=== PATIENT | female | born 1960 | race Caucasian/White ===

== ENCOUNTER 2023-10-27 11:34 | Outpatient (OUT) | payer BC, SELFPAY ==
--- NOTE | 2023-10-27 11:36 | MM_ITS ---
Patient Name: JULIO ZHU MR#: [id number] : 1960 Exam Date: 10/27/2023 Ordering Doctor: DR ALEX VELAZQUEZ RADIOLOGY REPORT PROCEDURE: MM TOMOSYNTHESIS SCREENING BI COMPARISON: MG MAMM SCREEN 3D OPAL CAD, 10/02/2022. MG MAMM SCREEN OPAL W CAD, 08/12/2021. MG MAMM SCREEN OPAL W CAD, 08/01/2019. MG MAMM OPAL SCRN W CAD DIG, 12/18/2013. INDICATIONS: Screening Calculator Name NCI Breast Cancer Risk Assessment Tool 5 Year Breast Cancer Risk 1.10% Lifetime Breast Cancer Risk 4.90% Personal Breast Cancer No Personal Ovarian Cancer No Treatments None Family Cancers Mother with cervical cancer at age 70; Sister with lung cancer at age 64. LOCATION: [facility] BREAST COMPOSITION: Heterogeneously dense,which may obscure small masses. FINDINGS: DIAGNOSTIC CATEGORY 1--NEGATIVE. RIGHT BREAST: No significant suspicious finding. No significant change has occurred. LEFT BREAST: No significant suspicious finding. No significant change has occurred. RECOMMENDATIONS: ROUTINE MAMMOGRAM AND CLINICAL EVALUATION IN 12 MONTHS. PLEASE NOTE: A NORMAL MAMMOGRAM DOES NOT EXCLUDE THE POSSIBILITY OF BREAST CANCER. A CLINICALLY SUSPICIOUS PALPABLE LUMP SHOULD BE BIOPSIED. Dictated by: Husam Banks M.D. on 10/27/2023 at 15:10 Approved by: Husam Banks M.D. on 10/27/2023 at 15:12
== END 2023-10-27 11:35 | disposition home or self-care (01) ==
LOC: MAMMO 11:34
PROVIDERS: PCP Family Medicine; Visit Provider Family Medicine
DX: Z12.31 Encounter for screening mammogram for malignant neoplasm of breast (principal); Z80.8 Family history of malignant neoplasm of other organs or systems; Z80.1 Family history of malignant neoplasm of trachea, bronchus and lung
CPT/HCPCS: 77063; 77067

== ENCOUNTER 2024-10-19 19:46 | Outpatient (REF) | payer BC, SELFPAY ==
--- OUTSIDE RECORDS SUMMARY | 2024-10-19 19:51 | XMS_ITS | CCD ---
Author Organization [facility] Care Team Providers Care 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 Name Role Phone MASSIEL JASMINE Referring Unavailable MASSIEL JASMINE Primary Care Unavailable MD Vic Rodríguez Primary Care Provider [phone] Community, Outreach Attending Provider Community, Outreach Admitting Unavailable Community, Outreach Attending Unavailable Vic Rodríguez Primary Care Unavailable Community, Outreach Admitting Unavailable Community, Outreach Attending Unavailable Vic Rodríguez Primary Care Unavailable RAMANA, DR FERNANDEZ Admitting Unavailable RAMANA, DR FERNANDEZ Attending Unavailable LACHELLE, DR OGDEN Primary Care Unavailable RAMANA, DR FERNANDEZ Consulting Unavailable MASSIEL JASMINE Primary Care Physician Natalee CAMARGO Referring Unavailable Natalee CAMARGO Attending Unavailable Natalee CAMARGO Admitting Unavailable Massiel Jasmine MD Primary Care Provider ELIE RICHARD Attending ELIE Gould Attending MASSIEL Pan Referring Unavailable ELIE RICHARD Attending Jean Carlos talbert Allergies Allergy Classification Reported Allergen(s) Allergy Type Date of Onset Reaction(s) Facility (1 source) No Known Medication Allergies; Translations: [No Known Medication Allergies] Propensity to adverse reactions (disorder) [facility] Repository Medications Current Medications Medication Drug Class(es) Dates Sig (Normalized) Sig (Original) methIMAzole 10 mg oral tablet (5 sources) Thyroid Hormone Synthesis Inhibitor Start: 06-20-2021 take 1 tablet by mouth once daily methimazole 10 mg Tab 10 mg = 1 tab(s), Oral, Daily, Refills(s) 0, Thyroid Start Date: 06/20/21 Status: Ordered methIMAzole (Tap azole) 5 MG tablet 1 (one) time each day at the same time. Active Multiple Vitamins-Minerals (CENTRUM SILVER 50+MEN PO) (4 sources) Multiple Vitamin s-Minerals (CENTRUM SILVER 50+MEN PO) Orally Active 24 hr nicotine 0.583 mg/hr transdermal system (1 source) Cholinergic Nicotinic Agonist Start: nicotine 14 mg/24 hr Transderm ER Film 1 patch(es), TransDermal, Daily, Refill(s) 0, Smoking cessation Start Date: 06/20/21 Status: Ordered Problems Active Problems Problem Classification Problem Date Documented Da te Episodic/Chronic Acquired foot deformities (2 sources) Hammer toe; Translations: [Other hammer toe(s) (acquired), right foot] 09-17-2024 Chronic Acquired foot deformities (2 sources) Tailor's bunion of left foot; Translations: [Bunionette of left foot] 09-17-2024 Episodic Cardiac dysrhythmias (1 source) Bradycardia 06-20-2021 Episodic Gastrointestinal hemorrhage (1 source) Rectal hemorrhage 06-20-2021 Episodic Immunizations and screening for infectious disease (1 source) Encounter for screening for human papillomavirus (HPV); Translations: [ENC SCREENING HUMAN PAPILLOMAVIRUS] Onset: 06-18-2022 Episodic Nonmalignant breast conditions (1 source) Fibrocystic disease of breast 06-20-2021 Chronic Other acquired deformities (2 sources) Equinus contracture of the ankle; Translations: [Contracture, unspecified ankle] 09-17-2024 Chronic Other and unspecified benign neoplasm (1 source) History of polyp of colon 06-20-2021 Episodic Other connective tissue disease (2 sources) Pain in left foot; Translations: [Pain in left foot] 09-17-2024 Episodic Other connective tissue disease (2 sources) Pain in right foot; Translations: [Pain in right foot] 09-17-2024 Episodic Other ear and sense organ disorders (1 source) Hearing loss 06-20-2021 Chronic Other gastrointestinal disorders (1 source) Alteration in bowel elimination 06-27-2021 Episodic Other screening for suspected conditions (not mental disorders or infectious disease) (4 sources) Encounter for screening for malignant neoplasm of cervix; Translations: [ENC SCREENING MALIG NEOPLASM CERV] Onset: 06-17-2022 Episodic Other skin disorders (2 sources) Callosity; Translations: [Corns and callosities] 09-17-2024 Episodic Residual codes; unclassified (1 source) Family history of cancer of colon 06-27-2021 Episodic Thyroid disorders (9 sources) Graves' disease; Translations: [Thyrotoxicosis with diffuse goiter without thyrotoxic crisis or storm] Onset: 04-18-2018 06-20-2021 Chronic Unclassified (1 source) Body mass index 20-24 - normal 06-27-2021 Past or Other Problems Problem Classification Problem Date Documented Date Episodic/Chronic Other diseases of veins and lymphatics (5 sources) Peripheral venous insufficiency; Translations: [Venous insufficiency (chronic) (peripheral)] Onset: 07-02-2023 06-20-2021 Episodic Results Test Name Value Interpretation Reference Range Facility CT Abdomen/Pelvis w/ Contras ton 07-28-2023 CT Abdomen/Pelvis w/ Contrast Exam Date/Time: 07/27/2023 08:12 EST Reason for Exam: [id number] Report IMPRESSION: NO ACUTE ABDOMINOPELVIC PROCESS. EXAM: CT Abdomen/Pelvis w/ Contrast History: Follow-up right ovarian cyst. Left groin pain. Technique: Multiple contiguous axial images were obtained of the abdomen and pelvis from the level of the lung bases through the ischial tuberosities with IV and oral contrast. Multiplanar reformats were obtained. Delayed images were obtained. Comparison: None available Findings: Lung bases are clear. The liver, gallbladder, spleen, stomach, pancreas, and adrenal glands are within normal limits. Kidneys enhance uniformly. No excretion of contrast from the kidneys and normal course and contour of the ureters.. No urinary tract calculi or hydronephrosis. The urinary bladder is significantly distended. No cystic or solid adnexal lesion. Uterus is absent. Abdominal aorta is nonaneurysmal. No retroperitoneal or abdominal/pelvic lymphadenopathy. No small bowel obstruction. Postsurgical changes of the sigmoid colon. No overt colonic mass or pericolonic inflammation. No findings of acute appendicitis. No free fluid or free air. No acute osseous abnormality. Degenerative changes of the spine. All CT scans at this facility use dose modulation, iterative reconstruction, and/or weight based dosing when appropriate to reduce radiation dose to as low as reasonably achievable. Report Ordering Provider: , FINAL REPORT Dictated: 07/28/2023 1:24 pm Graham Ferguson DO Signed (Electronic Signature): 07/28/2023 1:24 pm Signed by: Graham Ferguson DO Transcribed by: MASSIEL Technologist: [email or web address] Technical Comments GFR (mL/min/1/73m2) >60 Contrast: Isovue 300 Contrast amount in ml's: 100 Rectal Contrast Given? No Oral contrast amount in ml's: 900 Normal [facility] Consent for Treatmenton 07-14 Consent for Treatment [id number]#1.0 0TIFF Normal [facility] CreatinineOrdered By: Intrakr SYSTEM on 07-27-2023 Creatinine [Mass/Vol] 0.7 mg/dL Normal 0.5-1.3 FTM C Remisol Comment on above: Performed By: #### 2 [id number], [id number] #### [facility] [address] [place] [address] eGFROrdered By: SYSTEM SYSTE M on 07-27-2023 GFR/1.73 sq M.predicted among non-blacks MDRD (S/P/Bld) [Vol rate/Area] 97 mL/min/1.73 m2 Normal >=59 FT Chem S Comment on above: Interpretive Data: C hronic kidney disease could be indicated at eGFR's of less than 60 mL/min/1.73m2. Kidney failure is indicated at less than 15 mL/min/1.73m2. Order Comment: Order added by Discern Expert. Result Comment: Manufacturing Controls Engineer eric kidney disease could be indicated at eGFR's of less than 60 mL/min/1.73m2. Kidney failure is indicated at less than 15 mL/min/1.73m2. Performed By: #### 2 [id number], [id number] #### [facility] [address] [place] [address] Physician Orderon 07-26-2023 Physician Order [id number]#1. 00TIFF Normal [facility] Physician Order [id number]#1.00 TIFF Normal [facility] Physician Orderon 07-14-2023 Physician Order [id number]#1.0 0TIFF Lis Chandler [facility] PAP ACOG PANEL 2: 30 to 65on 06-24-2022 . . Normal [facility] Comment on above: Result Comment: Perf ormed at: BA Performed By: #### 4 [id number] #### [facility] [address] [place] [address] Dr. Elana Mata Age Gdln ACOG Testing 30-65 Normal [facility] Comment on above: Performed By: #### 4 [id number] #### [facility] [address] [place] [address] Dr. Elana Mata DIAGNOSIS: Comment Normal [facility] Comment on above: Result Comment: NEGA TIVE FOR INTRAEPITHELIAL LESION OR MALIGNANCY. CELLULAR CHANGES ASSOCIATED WITH ATROPHY ARE PRESENT. Performed at: BA Performed By: #### 4 [id number] #### [facility] [address] [place] [address] Dr. Elana Mata HPV Aptima Negative Normal Negative [facility] Comment on above: Result Comment: This nucleic acid amplification test detects fourteen high-risk HPV types (16,18,31,33,35,39,45,51,52,56,58,59,66,68) without differentiation. Performed at: =G Performed By: #### 4 [id number] #### [facility] [address] [place] [address] Dr. Elana Mata Methodology: Comment Normal [facility] Comment on above: Result Comment: This liquid based ThinPrep(R) pap test was screened with the use of an image guided system. Performed at: WB Performed By: #### 4 [id number] #### [facility] [address] [place] [address] Dr. Elana Mata Note: Comment Normal [facility] Comment on above: Result Comment: The Pap smear is a screening test designed to aid in the detection of premalignant and malignant conditions of the uterine cervix. It is not a diagnostic procedure and should not be used as the sole means of detecting cervical cancer. Both false-positive and false-negative reports do occur. . Performed at: WB Performed By: #### 4 [id number] #### [facility] [address] [address] [address] Elana Mata Performed by: Comment Normal [facility] Comment on above: Result Comment: Erik Evangelista, [employer] Performed at: BA Performed By: #### 4 [id number] #### [facility] [address] [address] [address] Elana Mata Specimen adequacy: Comment Normal [facility] Comment on above: Result Comment: Sati sfactory for evaluation. Endocervical component may not be distinguished in cases of atrophy. Performed at: BA Performed By: #### 4 [id number] #### [facility] [address] [address] [address] Elana Mata Blood hemoglobin measurement (mass/volume)Ordered By: [facility] on 06-20-2022 Hemoglobin (Bld) [Mass/Vol] 13.8 g/dL 11.8-15.4 [facility] Body fluid albumin measureme nt (mass/volume)Ordered By: [facility] on 06-20-2022 Albumin (Body fld) [Mass/Vol] 3.9 g/dL 3.2-5.5 [facility] CBC Without Differentialon 1 Erythrocyte distribution width (RBC) [Ratio] 13.0 % Normal 11.9-15.3 [facility] Comment on above: Performed By: #### O UTREACH LIPID, OUTREACH TSH, OUTREACH VITD, CBCNOOUTREACH, OUTREACH CMP #### [facility] [address] Hematocrit (Bld) [Volume fraction] 40.9 % Normal 34.0-46.4 [facility] Comment on above: Performed By: #### O UTREACH LIPID, OUTREACH TSH, OUTREACH VITD, CBCNOOUTREACH, OUTREACH CMP #### [facility] [address] [place] [address] [place] Hemoglobin (Bld) [Mass/Vol] 13.8 g/dL Normal 11.8-15.4 [facility] Comment on above: Performed By: #### O UTREACH LIPID, OUTREACH TSH, OUTREACH VITD, CBCNOOUTREACH, OUTREACH CMP #### [facility] [address] MCH (RBC) [Entitic mass] 32.7 pg Normal 24.7-34.3 [facility] Comment on above: Performed By: #### O UTREACH LIPID, OUTREACH TSH, OUTREACH VITD, CBCNOOUTREACH, OUTREACH CMP #### [facility] [address] MCV (RBC) [Entitic vol] 97.2 fL Normal 80-100 F [facility] Comment on above: Performed By: #### O UTREACH LIPID, OUTREACH TSH, OUTREACH VITD, CBCNOOUTREACH, OUTREACH CMP #### [address] Mean Corpuscular HGB Conc 33.6 g/dL Normal 32.0-35.0 [facility] Comment on above: Performed By: #### O UTREACH LIPID, OUTREACH TSH, OUTREACH VITD, CBCNOOUTREACH, OUTREACH CMP #### [address] Platelet mean volume (Bld) [Entitic vol] 8.9 fL Normal 6.3-10.7 [facility] Comment on above: Result Comment: PERF ORMED BY: [place] [address] PATHOLOGIST SANDWICH [employer]ARD CARRIER ALLISON MANUEL M.D. Performed By: #### O UTREACH LIPID, OUTREACH TSH, OUTREACH VITD, CBCNOOUTREACH, OUTREACH CMP #### [place] [address] [place] Platelets (Bld) [#/Vol] 283 10*3/uL Normal 150-450 [facility] Comment on above: Performed By: #### O UTREACH LIPID, OUTREACH TSH, OUTREACH VITD, CBCNOOUTREACH, OUTREACH CMP #### [facility] [address] [place] [address] [place] RBC (Bld) [#/Vol] 4.21 10*6/uL Normal 3.60-5.00 [facility] Comment on above: Performed By: #### O UTREACH LIPID, OUTREACH TSH, OUTREACH VITD, CBCNOOUTREACH, OUTREACH CMP #### [facility] [address] [place] [address] WBC (Bld) [#/Vol] 6.1 10*3/uL Normal 3.8-11.6 [facility] Comment on above: Performed By: #### O UTREACH LIPID, OUTREACH TSH, OUTREACH VITD, CBCNOOUTREACH, OUTREACH CMP #### [facility] [address] [place] [address] CMP Outreachon 06-20-2022 Albumin [Mass/Vol] 3.9 g/dL Normal 3.2-5.5 [facility] Comment on above: Performed By: #### O UTREACH LIPID, OUTREACH TSH, OUTREACH VITD, CBCNOOUTREACH, OUTREACH CMP #### [facility] [address] [place] [address] ALP [Catalytic activity/Vol] 94 U/L High 32-92 [facility] Comment on above: Performed By: #### O UTREACH LIPID, OUTREACH TSH, OUTREACH VITD, CBCNOOUTREACH, OUTREACH CMP #### [facility] [address] [place] [address] ALT [Catalytic activity/Vol] 27 U/L Normal 10-60 [facility] Comment on above: Performed By: #### O UTREACH LIPID, OUTREACH TSH, OUTREACH VITD, CBCNOOUTREACH, OUTREACH CMP #### [facility] [address] [place] [address] Anion gap [Moles/Vol] 13.2 mmol/L Normal 6.0-15.0 [facility] Comment on above: Performed By: #### O UTREACH LIPID, OUTREACH TSH, OUTREACH VITD, CBCNOOUTREACH, OUTREACH CMP #### [facility] [address] [place] [address] AST [Catalytic activity/Vol] 33 U/L Normal 10-42 [facility] Comment on above: Performed By: #### O UTREACH LIPID, OUTREACH TSH, OUTREACH VITD, CBCNOOUTREACH, OUTREACH CMP #### [facility] [address] [place] [address] [place] Bilirubin [Mass/Vol] 0.5 mg/dL Normal 0.3-1.2 [facility] Comment on above: Performed By: #### O UTREACH LIPID, OUTREACH TSH, OUTREACH VITD, CBCNOOUTREACH, OUTREACH CMP #### [facility] [address] [place] [id number] [place] Calcium [Mass/Vol] 9.2 mg/dL Normal 8.2-10.2 [facility] Comment on above: Performed By: #### O UTREACH LIPID, OUTREACH TSH, OUTREACH VITD, CBCNOOUTREACH, OUTREACH CMP #### [facility] [address] [place] [address] [place] Chloride [Moles/Vol] 103 mmol/L Normal 95-114 [facility] Comment on above: Performed By: #### O UTREACH LIPID, OUTREACH TSH, OUTREACH VITD, CBCNOOUTREACH, OUTREACH CMP #### [facility] [address] [place] [address] [place] CO2 [Moles/Vol] 26.1 mmol/L Normal 22.0-30.0 [facility] Comment on above: Performed By: #### O UTREACH LIPID, OUTREACH TSH, OUTREACH VITD, CBCNOOUTREACH, OUTREACH CMP #### [facility] [address] [place] [id number] [place] Creatinine [Mass/Vol] 0.65 mg/dL Normal 0.44-1.03 [facility] Comment on above: Performed By: #### O UTREACH LIPID, OUTREACH TSH, OUTREACH VITD, CBCNOOUTREACH, OUTREACH CMP #### [facility] [address] [place] [id number] [place] Estimated GFR ( Lakshmi > 60 Normal [facility] Comment on above: Result Comment: GFR estimated reference range: According to KDOQI guidelines, <60 ml/min/1.73m2 is sufficient to diagnose a patient with chronic kidney disease. Performed By: #### O UTREACH LIPID, OUTREACH TSH, OUTREACH VITD, CBCNOOUTREACH, OUTREACH CMP #### [facility] [address] [place] [id number] [place] Estimated GFR (Non- Am > 60 Normal [facility] Comment on above: Performed By: #### O UTREACH LIPID, OUTREACH TSH, OUTREACH VITD, CBCNOOUTREACH, OUTREACH CMP #### [facility] [address] [place] [id number] [place] Glucose [Mass/Vol] 99 mg/dL Normal 70-100 [facility] Comment on above: Result Comment: [facility] Glucose Reference Range is dependent on time and content of last meal. Glucose of more than 200 mg/dL in a nonstressed, ambulatory subject supports the diagnosis of Diabetes Mellitus. ADA recommended reference range Performed By: #### O UTREACH LIPID, OUTREACH TSH, OUTREACH VITD, CBCNOOUTREACH, OUTREACH CMP #### [facility] [address] [place] [address] [place] Potassium [Moles/Vol] 4.3 mmol/L Normal 3.5-5.1 [facility] Comment on above: Performed By: #### O UTREACH LIPID, OUTREACH TSH, OUTREACH VITD, CBCNOOUTREACH, OUTREACH CMP #### [facility] [address] [place] [phone] [place] Protein [Mass/Vol] 6.6 g/dL Normal 6.1-7.9 [facility] Comment on above: Performed By: #### O UTREACH LIPID, OUTREACH TSH, OUTREACH VITD, CBCNOOUTREACH, OUTREACH CMP #### [facility] [address] [place] [phone] [place] Sodium [Moles/Vol] 138 mmol/L Normal 136-146 [facility] Comment on above: Performed By: #### O UTREACH LIPID, OUTREACH TSH, OUTREACH VITD, CBCNOOUTREACH, OUTREACH CMP #### [facility] [address] [place] [phone] [place] Urea nitrogen [Mass/Vol] 11 mg/dL Normal 9-23 [facility] Comment on above: Performed By: #### O UTREACH LIPID, OUTREACH TSH, OUTREACH VITD, CBCNOOUTREACH, OUTREACH CMP #### [facility] [address] Cholesterol [Mass/volume] in Serum or PlasmaOrdered By: [facility] on 06-20-2022 Cholesterol [Mass/Vol] 232 mg/dL 140-200 [facility] Comment on above: Chol less than 200 m g/dl low riskChol 201-239 mg/dl borderline riskChol 240 mg/dl and greater high risk Cholesterol in LDL Calc [Mas s/Vol]Ordered By: OUTREACH [facility] on 06-20-2022 Cholesterol in LDL [Mass/Vol] 123 mg/dL 0-100 [facility] Comment on above: LDL ATP III CLASSIFI CATIONLDL less than 100 mg/dL OptimalLDL 100-129 mg/dL Near or above optimalLDL 130-159 mg/dL Borderline highLDL 160-189 mg/dL HighLDL greater than 189 mg/dL Very high Cholesterol in VLDL Calc [Ma ss/Vol]Ordered By: [facility] on 06-20-2022 Cholesterol in VLDL [Mass/Vol] 17 mg/dL [facility] Creatinine and Glomerular fi ltration rate.predicted panel (S/P/Bld)Ordered By: [facility] on 06-20-2022 Creatinine [Mass/Vol] 0.65 mg/dL 0.44-1.03 [facility] Erythrocyte distribution wid th Auto (RBC) [Ratio]Ordered By: [facility] on 06-20-2022 Erythrocyte distribution width (RBC) [Ratio] 13.0 % 11.9-15.3 [facility] Estimated glomerular filtrat ion rate (GFR) non- AmericanOrdered By: [facility] on 06-20-2022 GFR/1.73 sq M.predicted among non-blacks MDRD (S/P/Bld) [Vol rate/Area] > 60 mL/Min [facility] Hematocrit Auto (Bld) [Volum e fraction]Ordered By: [facility] on 06-20-2022 Hematocrit (Bld) [Volume fraction] 40.9 % 34.0-46.4 [facility] Lipid Profile Outreach Cholesterol [Mass/Vol] 232 mg/dL High 140-200 [facility] Comment on above: Result Comment: Chol less than 200 mg/dl low risk Chol 201-239 mg/dl borderline risk Chol 240 mg/dl and greater high risk Performed By: #### O UTREACH LIPID, OUTREACH TSH, OUTREACH VITD, CBCNOOUTREACH, OUTREACH CMP #### [facility] [address] Cholesterol in HDL [Mass/Vol] 92 mg/dL High 35-85 [facility] Comment on above: Result Comment: HDL CHOL ATP-III CLASSIFICATION Cardiovascular Risk HDL > or equal to 60 mg/dL LOW HDL < 40 mg/dL HIGH Performed By: #### O UTREACH LIPID, OUTREACH TSH, OUTREACH VITD, CBCNOOUTREACH, OUTREACH CMP #### [facility] [address] Cholesterol.total/Choles terol in HDL [Mass ratio] 2.5 {ratio} Normal <5.0 [facility] Comment on above: Performed By: #### O UTREACH LIPID, OUTREACH TSH, OUTREACH VITD, CBCNOOUTREACH, OUTREACH CMP #### [facility] [address] LDL Cholesterol,Calculated 123 mg/dL High 0-100 [facility] Comment on above: Result Comment: LDL ATP III CLASSIFICATION LDL less than 100 mg/dL Optimal LDL 100-129 mg/dL Near or above optimal LDL 130-159 mg/dL Borderline high LDL 160-189 mg/dL High LDL greater than 189 mg/dL Very high Performed By: #### O UTREACH LIPID, OUTREACH TSH, OUTREACH VITD, CBCNOOUTREACH, OUTREACH CMP #### [facility] [address] Triglyceride w/Reflex 87 mg/dL Normal 35-149 [facility] Comment on above: Result Comment: TRIG ATP III CLASSIFICATION TRIG less than 150 mg/dL Normal TRIG 150-199 mg/dL Borderline high TRIG 200-500 mg/dL High TRIG greater than 500 mg/dL Very high Standard traceable to the Center for Disease Conrtrol and Prevention (CDC) test method. Performed By: #### O UTREACH LIPID, OUTREACH TSH, OUTREACH VITD, CBCNOOUTREACH, OUTREACH CMP #### [facility] [address] VLDL CHOLESTEROL 17 mg/dL Normal [facility] Comment on above: Performed By: #### O UTREACH LIPID, OUTREACH TSH, OUTREACH VITD, CBCNOOUTREACH, OUTREACH CMP #### [facility] [address] MCH Auto (RBC) [Entitic mass ]Ordered By: OUTREACH COMM[facility]ITY on 06-20-2022 MCH (RBC) [Entitic mass] 32.7 pg 24.7-34.3 [facility] MCHC Auto (RBC) [Mass/Vol]Or dered By: OUTREACH COMMUNITY on 06-20-2022 MCHC (RBC) [Mass/Vol] 33.6 g/dL 32.0-35.0 [facility] MCV Auto (RBC) [Entitic vol] Ordered By: OUTREACH COMMUNITY on 06-20-2022 MCV (RBC) [Entitic vol] 97.2 fL 80-100 F [facility] No Panel InformationOrdered By: OUTREACH COMMUNITY on 06-20-2022 25-Hydroxy Vitamin D Total 29.9 ng/mL 30-100 [facility] Comment on above: VITAMIN D STATUS 25( [place])VITAMIN D RANGE (ng/mL) Deficient <20 Insufficient 20 to <30Sufficient 30 to 100Reference: Lizzie MF,Eliana NC, Tank ORTIZ, et al. Evaluation,treatment, and prevention of vitamin D deficiency; an Endocrine Society clinical practice guideline. JCEM. 2010; 96(7):1911-30. Estimated GFR () > 60 mL/Min [facility] Comment on above: GFR estimated refere nce range: According to KDOQI guidelines, <60 ml/min/1.73m2 is sufficient to diagnose a patient with chronic kidney disease. Pharmacy Creatinine Clearance (Chem N/A [facility] Triglycerides Reflex 87 mg/dL 35-149 [facility] Comment on above: TRIG ATP III CLASSIF ICATIONTRIG less than 150 mg/dL NormalTRIG 150-199 mg/dL Borderline highTRIG 200-500 mg/dL High TRIG greater than 500 mg/dL Very highStandard traceable to the Center for Disease Conrtrol and Prevention (CDC) test method. Outreach VitD 25on 2 Outreach VitD 25 29.9 ng/mL Low 30-100 [facility] Comment on above: Result Comment: MONAE MIN D STATUS 25([place])VITAMIN D RANGE (ng/mL) Deficient <20 Insufficient 20 to <30 Sufficient 30 to 100 Reference: Lizzie MF,Eliana NC, Tank ORTIZ, et al. Evaluation,treatment, and prevention of vitamin D deficiency; an Endocrine Society clinical practice guideline. JCEM. 2010; 96(7):1911-30. PERFORMED BY: [place] [id number] PATHOLOGIST SANDWICH [employer]ARD CARRIER ALLISON MANUEL M.D. Performed By: #### O UTREA GLYCO, OUTREACH VITD, OUTREACH TSH, CBCNOOUTREACH, OUTREACH LIPID, OUTREACH CMP #### [address] Platelet mean volume Auto (B ld) [Entitic vol]Ordered By: OUTREACH [facility] on 06-20-2022 Platelet mean volume (Bld) [Entitic vol] 8.9 fL 6.3-10.7 [facility] Platelets Auto (Bld) [#/Vol] Ordered By: [facility] on 06-20-2022 Platelets (Bld) [#/Vol] 283 10*3/uL 150-450 [facility] Protein [Mass/volume] in Ser um or PlasmaOrdered By: OUTREACH [facility] on 06-20-2022 Protein [Mass/Vol] 6.6 g/dL 6.1-7.9 [facility] RBC Auto (Bld) [#/Vol]Ordere d By: OUTREACH [facility] on 06-20-2022 RBC (Bld) [#/Vol] 4.21 10*6/uL 3.60-5.00 [facility] Serum or plasma alanine burks otransferase measurement without P-5'-P (enzymatic activiOrdered By: [facility]ACH [facility] on 06-20-2022 ALT No additional P-5'-P [Catalytic activity/Vol] 27 U/L 10-60 [facility] Serum or plasma alkaline teddy sphatase measurement (enzymatic activity/volume)Ordered By: [facility]ACH [facility] on 06-20-2022 ALP [Catalytic activity/Vol] 94 U/L 32-92 [facility] Serum or plasma anion gap de terminationOrdered By: OUTREACH [facility] on 06-20-2022 Anion gap [Moles/Vol] 13.2 mmol/L 6.0-15.0 [facility] Serum or plasma aspartate am inotransferase measurement (enzymatic activity/volume)Ordered By: OUTREACH [facility] on 06-20-2022 AST [Catalytic activity/Vol] 33 U/L 10-42 [facility] Serum or plasma calcium samir urement (mass/volume)Ordered By: OUTREACH [facility] on 06-20-2022 Calcium [Mass/Vol] 9.2 mg/dL 8.2-10.2 [facility] Serum or plasma chloride vera surement (moles/volume)Ordered By: OUTREACH [facility] on 06-20-2022 Chloride [Moles/Vol] 103 mmol/L 95-114 [facility] Serum or plasma glucose samir urement (mass/volume)Ordered By: [facility] on 06-20-2022 Glucose [Mass/Vol] 99 mg/dL 70-100 [facility] Comment on above: ADA recommended refe rence rangeRandom Glucose Reference Range is dependent on time and content of last meal. Glucose of more than 200 mg/dL in a nonstressed, ambulatory subject supports the diagnosis of Diabetes Mellitus. Serum or plasma high density lipoprotein (HDL) cholesterol measurementOrdered By: OUTREACH [facility] on 06-20-2022 Cholesterol in HDL [Mass/Vol] 92 mg/dL 35-85 [facility] Comment on above: HDL CHOL ATP-III CLA SSIFICATION Cardiovascular RiskHDL > or equal to 60 mg/dL LOWHDL < 40 mg/dL HIGH Serum or plasma potassium me asurement (moles/volume)Ordered By: OUTREACH [facility] on 06-20-2022 Potassium [Moles/Vol] 4.3 mmol/L 3.5-5.1 [facility] Serum or plasma sodium measu rement (moles/volume)Ordered By: [facility] on 06-20-2022 Sodium [Moles/Vol] 138 mmol/L 136-146 [facility] Serum or plasma total biliru bin measurement (mass/volume)Ordered By: [facility] on 06-20-2022 Bilirubin [Mass/Vol] 0.5 mg/dL 0.3-1.2 [facility] Serum or plasma total carbon dioxide measurement (moles/volume)Ordered By: [facility] on 06-20-2022 CO2 [Moles/Vol] 26.1 mmol/L 22.0-30.0 [facility] Serum or plasma total choles terol/high density lipoprotein (HDL) cholesterol mass ratOrdered By: [facility] on 06-20-2022 Cholesterol.total/Choles terol in HDL [Mass ratio] 2.5 {ratio} <5.0 [facility] Serum or plasma urea nitroge n measurement (mass/volume)Ordered By: [facility] on 06-20-2022 Urea nitrogen [Mass/Vol] 11 mg/dL 06-05 [facility] TSH DL <= 0.005 mIU/L QnOrde red By: OUTREACH [facility] on 06-20-2022 TSH Qn 2.84 m[IU]/L 0.45-5.33 [facility] Thyroid Stimulating Hormoneo n 06-20-2022 TSH Qn 2.84 m[IU]/L Normal 0.45-5.33 [facility] Comment on above: Performed By: #### O ANCELMO LIPID, OUTREACH TSH, OUTREACH VITD, CBCNOOUTREACH, OUTREACH CMP #### [facility] [address] [place] [address] [place] WBC Auto (Bld) [#/Vol]Ordere d By: [facility] on 06-20-2022 WBC (Bld) [#/Vol] 6.1 10*3/uL 3.8-11.6 [facility] CBC Without Differentialon 0 11-01-2021 Erythrocyte distribution width (RBC) [Ratio] 13.9 % Normal 11.9-15.3 [facility] Comment on above: Performed By: #### O SETHCH GLYCO, OUTREACH VITD, OUTREACH TSH, CBCNOOUTREACH, OUTREACH LIPID, OUTREACH CMP #### [facility] [address] [place] [address] [place] Hematocrit (Bld) [Volume fraction] 40.4 % Normal 34.0-46.4 [facility] Comment on above: Performed By: #### O UTREACH GLYCO, OUTREACH VITD, OUTREACH TSH, CBCNOOUTREACH, OUTREACH LIPID, OUTREACH CMP #### [facility] [address] [place] [address] [place] Hemoglobin (Bld) [Mass/Vol] 13.6 g/dL Normal 11.8-15.4 [facility] Comment on above: Performed By: #### O UTREACH GLYCO, OUTREACH VITD, OUTREACH TSH, CBCNOOUTREACH, OUTREACH LIPID, OUTREACH CMP #### [facility] [address] [place] [address] MCH (RBC) [Entitic mass] 32.6 pg Normal 24.7-34.3 [facility] Comment on above: Performed By: #### O UTREACH GLYCO, OUTREACH VITD, OUTREACH TSH, CBCNOOUTREACH, OUTREACH LIPID, OUTREACH CMP #### [address] MCV (RBC) [Entitic vol] 96.9 fL Normal 80-100 [facility] Comment on above: Performed By: #### O UTREACH GLYCO, OUTREACH VITD, OUTREACH TSH, CBCNOOUTREACH, OUTREACH LIPID, OUTREACH CMP #### [facility] [address] [place] [address] Mean Corpuscular HGB Conc 33.7 g/dL Normal 32.0-35.0 [facility] Comment on above: Performed By: #### O UTREACH GLYCO, OUTREACH VITD, OUTREACH TSH, CBCNOOUTREACH, OUTREACH LIPID, OUTREACH CMP #### [facility] [address] [place] [address] Platelet mean volume (Bld) [Entitic vol] 9.5 fL Normal 6.3-10.7 [facility] Comment on above: Result Comment: PERF ORMED BY: [place] [address] PATHOLOGIST [employer]ER ALLISON MANUEL M.D. Performed By: #### O UTREACH GLYCO, OUTREACH VITD, OUTREACH TSH, CBCNOOUTREACH, OUTREACH LIPID, OUTREACH CMP #### [facility] [address] [place] [address] [place] Platelets (Bld) [#/Vol] 241 10*3/uL Normal 150-450 [facility] Comment on above: Performed By: #### O UTREACH GLYCO, OUTREACH VITD, OUTREACH TSH, CBCNOOUTREACH, OUTREACH LIPID, OUTREACH CMP #### [facility] [address] [place] [address] RBC (Bld) [#/Vol] 4.17 10*6/uL Normal 3.60-5.00 [facility] Comment on above: Performed By: #### O UTREACH GLYCO, OUTREACH VITD, OUTREACH TSH, CBCNOOUTREACH, OUTREACH LIPID, OUTREACH CMP #### [facility] [address] [place] [address] WBC (Bld) [#/Vol] 4.3 10*3/uL Normal 3.8-11.6 [facility] Comment on above: Performed By: #### O UTREACH GLYCO, OUTREACH VITD, OUTREACH TSH, CBCNOOUTREACH, OUTREACH LIPID, OUTREACH CMP #### [facility] [address] [place] [address] CMP Outreachon 11-01-2021 Albumin [Mass/Vol] 3.8 g/dL Normal 3.2-5.5 [facility] Comment on above: Performed By: #### O UTREACH GLYCO, OUTREACH VITD, OUTREACH TSH, CBCNOOUTREACH, OUTREACH LIPID, OUTREACH CMP #### [facility] [address] [place] [address] ALP [Catalytic activity/Vol] 93 U/L High 32-92 [facility] Comment on above: Performed By: #### O UTREACH GLYCO, OUTREACH VITD, OUTREACH TSH, CBCNOOUTREACH, OUTREACH LIPID, OUTREACH CMP #### [facility] [address] [place] [address] ALT [Catalytic activity/Vol] 21 U/L Normal 10-60 [facility] Comment on above: Performed By: #### O UTREACH GLYCO, OUTREACH VITD, OUTREACH TSH, CBCNOOUTREACH, OUTREACH LIPID, OUTREACH CMP #### [facility] [address] [place] [phone] [place] AST [Catalytic activity/Vol] 26 U/L Normal 10-42 [facility] Comment on above: Performed By: #### O UTREACH GLYCO, OUTREACH VITD, OUTREACH TSH, CBCNOOUTREACH, OUTREACH LIPID, OUTREACH CMP #### [facility] [address] [place] [address] [place] Bilirubin [Mass/Vol] 0.7 mg/dL Normal 0.3-1.2 [facility] Comment on above: Performed By: #### O UTREACH GLYCO, OUTREACH VITD, OUTREACH TSH, CBCNOOUTREACH, OUTREACH LIPID, OUTREACH CMP #### [facility] [address] [place] [address] [place] Calcium [Mass/Vol] 9.1 mg/dL Normal 8.2-10.2 [facility] Comment on above: Performed By: #### O UTREACH GLYCO, OUTREACH VITD, OUTREACH TSH, CBCNOOUTREACH, OUTREACH LIPID, OUTREACH CMP #### [facility] [address] [place] [phone] [place] Chloride [Moles/Vol] 105 mmol/L Normal 95-114 [facility] Comment on above: Performed By: #### O UTREACH GLYCO, OUTREACH VITD, OUTREACH TSH, CBCNOOUTREACH, OUTREACH LIPID, OUTREACH CMP #### [facility] [address] [place] [phone] [place] CO2 [Moles/Vol] 24.3 mmol/L Normal 22.0-30.0 [facility] Comment on above: Performed By: #### O UTREACH GLYCO, OUTREACH VITD, OUTREACH TSH, CBCNOOUTREACH, OUTREACH LIPID, OUTREACH CMP #### [facility] [address] [place] [phone] [place] Creatinine [Mass/Vol] 0.65 mg/dL Normal 0.44-1.03 [facility] Comment on above: Performed By: #### O UTREACH GLYCO, OUTREACH VITD, OUTREACH TSH, CBCNOOUTREACH, OUTREACH LIPID, OUTREACH CMP #### [facility] [address] [place] [phone] [place] Estimated GFR ( Lakshmi > 60 [facility] Comment on above: Result Comment: GFR estimated reference range: According to KDOQI guidelines, <60 ml/min/1.73m2 is sufficient to diagnose a patient with chronic kidney disease. Performed By: #### O UTREACH GLYCO, OUTREACH VITD, OUTREACH TSH, CBCNOOUTREACH, OUTREACH LIPID, OUTREACH CMP #### [facility] [address] [place] [phone] [place] Estimated GFR (Non- Am > 60 [facility] Comment on above: Performed By: #### O UTREACH GLYCO, OUTREACH VITD, OUTREACH TSH, CBCNOOUTREACH, OUTREACH LIPID, OUTREACH CMP #### [facility] [address] [place] [phone] [place] Glucose [Mass/Vol] 98 mg/dL Normal 70-100 [facility] Comment on above: Result Comment: [place] Glucose Reference Range is dependent on time and content of last meal. Glucose of more than 200 mg/dL in a nonstressed, ambulatory subject supports the diagnosis of Diabetes Mellitus. ADA recommended reference range Performed By: #### O UTREACH GLYCO, OUTREACH VITD, OUTREACH TSH, CBCNOOUTREACH, OUTREACH LIPID, OUTREACH CMP #### [facility] [address] [place] [phone] [place] Potassium [Moles/Vol] 4.1 mmol/L Normal 3.5-5.1 [facility] Comment on above: Performed By: #### O UTREACH GLYCO, OUTREACH VITD, OUTREACH TSH, CBCNOOUTREACH, OUTREACH LIPID, OUTREACH CMP #### [facility] [address] [place] [phone] [place] Protein [Mass/Vol] 6.3 g/dL Normal 6.1-7.9 [facility] Comment on above: Performed By: #### O UTREACH GLYCO, OUTREACH VITD, OUTREACH TSH, CBCNOOUTREACH, OUTREACH LIPID, OUTREACH CMP #### [facility] [address] [place] [phone] [place] Sodium [Moles/Vol] 137 mmol/L Normal 136-146 [facility] Comment on above: Performed By: #### O UTREACH GLYCO, OUTREACH VITD, OUTREACH TSH, CBCNOOUTREACH, OUTREACH LIPID, OUTREACH CMP #### [facility] [address] [place] [phone] [place] Urea nitrogen [Mass/Vol] 18 mg/dL Normal 9-23 [facility] Comment on above: Performed By: #### O UTREACH GLYCO, OUTREACH VITD, OUTREACH TSH, CBCNOOUTREACH, OUTREACH LIPID, OUTREACH CMP #### [facility] [address] [place] [phone] [place] Lipid Profile Outreachon Cholesterol [Mass/Vol] 245 mg/dL High 140-200 [facility] Comment on above: Result Comment: Chol less than 200 mg/dl low risk Chol 201-239 mg/dl borderline risk Chol 240 mg/dl and greater high risk Performed By: #### O UTREACH GLYCO, OUTREACH VITD, OUTREACH TSH, CBCNOOUTREACH, OUTREACH LIPID, OUTREACH CMP #### [facility] [address] [place] [phone] [place] Cholesterol in HDL [Mass/Vol] 123 mg/dL High 35-85 [facility] Comment on above: Result Comment: HDL CHOL ATP-III CLASSIFICATION Cardiovascular Risk HDL > or equal to 60 mg/dL LOW HDL < 40 mg/dL HIGH Performed By: #### O UTREACH GLYCO, OUTREACH VITD, OUTREACH TSH, CBCNOOUTREACH, OUTREACH LIPID, OUTREACH CMP #### [facility] [address] [place] [phone] [place] Cholesterol.total/Choles terol in HDL [Mass ratio] 2.0 {ratio} Normal <5.0 [facility] Comment on above: Performed By: #### O UTREACH GLYCO, OUTREACH VITD, OUTREACH TSH, CBCNOOUTREACH, OUTREACH LIPID, OUTREACH CMP #### [facility] [address] [place] [phone] [place] LDL Cholesterol,Calculated 109 mg/dL High 0-100 [facility] Comment on above: Result Comment: LDL ATP III CLASSIFICATION LDL less than 100 mg/dL Optimal LDL 100-129 mg/dL Near or above optimal LDL 130-159 mg/dL Borderline high LDL 160-189 mg/dL High LDL greater than 189 mg/dL Very high Performed By: #### O UTREACH GLYCO, OUTREACH VITD, OUTREACH TSH, CBCNOOUTREACH, OUTREACH LIPID, OUTREACH CMP #### [facility] [address] Triglyceride w/Reflex 67 mg/dL Normal 35-149 [facility] Comment on above: Result Comment: TRIG ATP III CLASSIFICATION TRIG less than 150 mg/dL Normal TRIG 150-199 mg/dL Borderline high TRIG 200-500 mg/dL High TRIG greater than 500 mg/dL Very high Standard traceable to the Center for Disease Conrtrol and Prevention (CDC) test method. Performed By: #### O UTREACH GLYCO, OUTREACH VITD, OUTREACH TSH, CBCNOOUTREACH, OUTREACH LIPID, OUTREACH CMP #### [facility] [address] VLDL CHOLESTEROL 13 mg/dL Normal [facility] Comment on above: Performed By: #### O UTREACH GLYCO, OUTREACH VITD, OUTREACH TSH, CBCNOOUTREACH, OUTREACH LIPID, OUTREACH CMP #### [facility] [address] Outreach [place] 11-01-2021 Glucose [Mass/Vol] 108 mg/dL Normal [facility] Comment on above: Result Comment: PERF ORMED BY: [place] [address] PATHOLOGIST [employer] CARRIER ALLISON MANUEL M.D. Performed By: #### O UTREACH GLYCO, OUTREACH VITD, OUTREACH TSH, CBCNOOUTREACH, OUTREACH LIPID, OUTREACH CMP #### [facility] [address] HbA1c (Bld) [Mass fraction] 5.4 % Normal 4.3-5.6 [facility] Comment on above: Result Comment: Incr eased risk for diabetes: 5.7 - 6.4 diabetes: >6.4 glycemic control for adults with diabetes: <7.0 Performed By: #### O UTREACH GLYCO, OUTREACH VITD, OUTREACH TSH, CBCNOOUTREACH, OUTREACH LIPID, OUTREACH CMP #### [facility] [address] [place] [address] [facility] Thyroid Stimulating Hormoneo n 11-01-2021 TSH Qn 2.62 m[IU]/L Normal 0.45-5.33 [facility] Comment on above: Performed By: #### O UTREACH GLYCO, OUTREACH VITD, OUTREACH TSH, CBCNOOUTREACH, OUTREACH LIPID, OUTREACH CMP #### [facility] [address] [place] [address] [facility] Vitamin D 25 Hydroxy Totalon 11-01-2021 Vitamin D 25 Hydroxy Total 24.0 ng/mL Low 30-100 [facility] Comment on above: Result Comment: MONAE MIN D STATUS 25(OH)VITAMIN D RANGE (ng/mL) Deficient <20 Insufficient 20 to <30 Sufficient 30 to 100 Reference: Lizzie MF,Eliana NC, Tank ORTIZ, et al. Evaluation,treatment, and prevention of vitamin D deficiency; an Endocrine Society clinical practice guideline. JCEM. 2010; 96(7):1911-30. PERFORMED BY: [place] [address] PATHOLOGIST SANDW[employer] CARRIER ALLISON MANUEL M.D. Performed By: #### O UTREACH GLYCO, OUTREACH VITD, OUTREACH TSH, CBCNOOUTREACH, OUTREACH LIPID, OUTREACH CMP #### [facility] [address] [place] [address] [facility] Vitamin B12on 01-17-2021 Cobalamin (Vitamin B12) [Mass/Vol] 546 pg/mL Normal 232-1245 [facility] Comment on above: Performed By: #### B 12 #### [facility] [employer] [address] [place] [address] Cnc Machine Setter: Nitish Lopes MD Vital Signs Date Time Vital Sign Value Performing Clinician Orly velazquezy 09-15-2024 13:11-0500 Body height 167.6 cm Elie Richard DPM Work Phone: [facility] 09-15-2024 13:11-0500 Body mass index (BMI) [Ratio] 24.21 kg/m2 Elie RANKINM Work Phone: [facility] 09-15-2024 13:11-0500 Body weight 68.04 kg Elie Richard DPM Work Phone: [facility] 09-15-2024 13:11-0500 Diastolic blood pressure 81 mm[Hg] Elie Richard DPM Work Phone: [facility] 09-15-2024 13:11-0500 Heart rate 60 /min Elie Richard DPM Work Phone: [facility] 09-15-2024 13:11-0500 Respiratory rate 18 /min Elie Richard DPM Work Phone: [facility] 09-15-2024 13:11-0500 Systolic blood pressure 121 mm[Hg] Elie Richard DPM Work Phone: [facility] Healthcare Encounters Encounter Date Encounter Type Care Provider Facility Start: 10-19-2024 End: 10-19-2024 Bamboo flowsheet Eliane GUY Work Phone: [facility] Start: 10-19-2024 End: 10-19-2024 Bamboo flowsheet Eliane GUY Work Phone: [facility] Start: 09-15-2024 End: 09-15-2024 Bamboo flowsheet Elie Richard DPM Work Phone: [facility] Start: 09-15-2024 End: 09-15-2024 Bamboo flowsheet Elie Richard DPM Work Phone: [facility] Start: 09-15-2024 End: 09-15-2024 Office outpatient visit 25 minutes Elie Richard DPM Work Phone: [facility] Comment on above: Left foot pain (Prim samia Dx); Corns and callosities; Tailor's bunion of left foot; Right foot pain; Hammer toes of both feet; Equinus contracture of ankle Start: 09-15-2024 End: 09-15-2024 ambulatory ELIE RICHARD Not Available Start: 02-25-2024 End: 02-25-2024 ambulatory ELIE RICHARD Not Available Start: 01-06-2024 End: 01-06-2024 ambulatory ELIE RICHARD Not Available Start: 07-27-2023 End: 07-28-2023 ambulatory Natalee CAMARGO Facility:[facility] Start: 07-27-2023 End: 07-27-2023 Patient encounter procedure Natalee RAMAN [facility] Start: 06-20-2022 End: 06-20-2022 ambulatory Outreach Community Facility:[facility] Start: 06-20-2022 End: 06-20-2022 ambulatory MD Vic Rodríguez Work Phone: [facility] Work Phone: Start: 06-20-2022 End: 06-20-2022 Departed Referred MD Vic Rodríguez Work Phone: [facility] Start: 06-17-2022 End: 06-17-[address] REBECCA BOLES Facility: Start: 11-01-2021 End: 11-01-2021 ambulatory Outreach Community Facility:[facility] Start: 01-16-2021 End: 01-17-2021 ambulatory [facility] Procedures Date Procedure Procedure Detail Performing Clinician Start: 10-02-2022 Mammography Derian Richard DPM Work Phone: Start: 06-17-2022 Microscopic observat ion [Identifier] in Cervix by Cyto stain Eliane GUY Work Phone: Start: 09-22-2021 Colonoscopy Derian Richard DPM Work Phone: Start: 09-22-2021 Colonoscopy Natalee CAMARGO Comment on above: SIGMOID POLYPECOTMY Arthroplasty of left ankle S marco CAMARGO Colonoscopy Natalee ASH MAYNARD Plan of Treatment Date Care Activity Detail Author Start: 09-22-2031 Screening for malign ant neoplasm of colon [facility] Healthcare Start: 06-17-2025 Screening for malign ant neoplasm of cervix [facility] Start: 09-15-2024 End: 09-15-2024 Patient encounter procedure 09/15/2024 1:15 PM EST Office Visit [facility] [address] [place] [id number] Elie iRchard DPM [address] [place] [address] Arrived [facility] Comment on above: Arrived Start: 05-14-2024 Influenza vaccination Influenza Vacc ine (#1) [facility] Start: 10-02-2023 Screening for malign ant neoplasm of breast Mammogram [facility] Start: 1990 Screening for malign ant neoplasm of cervix [facility] Healthcare Start: 1981 Screening for malign ant neoplasm of cervix Pap Smear [facility] Start: 1960 Screening for malign ant neoplasm of colon [facility] Immunizations Immunization Date Immunization Notes Care Provider Fa cili 01-24-2021 SARS-CoV-2 (COVID-19 ) Ad26 vaccine, recombinant Natalee CAMARGO [facility] 12-27-2020 SARS-CoV-2 (COVID-19 ) Ad26 vaccine, recombinant Natalee CAMARGO [facility] Payers Date Payer Category Payer Unknown [id number] 2021 Self-pay [id number] [id number] 2017 Unknown [id number] 1960 Unknown [id number] 1960 Unknown [id number] 1960 Unknown [id number] 1960 Unknown [id number] 1960 Unknown [id number] 1960 Unknown [id number] 1959 Unknown [id number] Unknown Regular Insurance [id number] Unknown HCAP/HFA/FAP Active [id number] Unknown [id number] Unknown [id number] Social History Date Type Detail Facility [facility] Work Phone: Start: 1960 Sex Assigned At Female F [facility] Start: 06-27-2021 Tobacco smoking status Light t obacco smoker (finding) [facility] Tobacco smoking status Never [facility] Start: 05-25-2023 End: 02-25-2024 Sex Assigned At Female Ramesh Zavala [facility] Start: 02-25-2024 [facility] Work Phone: History of tobacco use Cigarette Smoker [facility] Start: 02-25-2024 Tobacco use and exposure Smokeless tobacco non-user [facility] Start: 02-25-2024 End: 09-15-2024 Alcoholic beverage intake Lifetime non-drinker (finding) [facility] Start: 05-25-2023 End: 02-25-2024 History of Social function [facility] Start: 1960 Sex assigned at Not on file N [facility] History of Present illness Narrative 09-15-2024 Elie Richard DPM - 09/15/2024 1:15 PM EST Note Date & Type Note Facility 09-15-2024 History of Presen t illness Narrative Subjective Patient ID: Annette Morton is a 64 y.o. female who presents for Follow-up (B/l richelle wynn). Debridement requested and shoes review and padding/accom for shoes HPI Pt here for follow up Left sub 5 painful. Great toe right and Rgt met 1. Would like pad to be checked on left shoe. PCP Massiel Jasmine MD DLS 02/15/2024 ROS General: Chillsdenies. Feverdenies. Musculoskeletal: muscle weaknessdenies. Bone/joint symptomsdenies. Peripheral Vascular: Edemadenies. Hx of blood clots in legsdenies. Raynaud'sdenies. Rest pain denies. Ulceration of feetdenies. Varicose veinsdenies. Skin: Hyperpigmentationdenies. Nail changesdenies. Rashdenies. Skin lesion(s)denies. Neurologic: Gait abnormalitydenies. Tingling/Numbnessdenies. Current Medications Current Outpatient Medications: methIMAzole (Tapazole) 5 MG tablet, 1 (one) time each day at the same time., Disp: , Rfl: Multiple Vitamins-Minerals (CENTRUM SILVER 50+MEN PO), Orally, Disp: , Rfl: Allergies Patient has no known allergies. Medical Histories Past Medical History: Diagnosis Date Arthritis Neck fracture (CMS/HCC) Surgical Histories Past Surgical History: Procedure Laterality Date FOOT SURGERY Left HYSTERECTOMY Hospitalizations Family History Family History Problem Relation Name Age of Onset Ovarian cancer Mother Heart disease Father Diabetes Father's Sister Heart disease Sibling Objective Foot Exam General General Appearance: appears stated age and healthy Orientation: alert and oriented to person, place, and time Right Foot/Ankle Inspection and Palpation Ecchymosis: none Tenderness: none Swelling: none Arch: normal Hammertoes: second toe, third toe, fourth toe and fifth toe Hallux valgus: no Hallux limitus: no Skin Exam: skin intact; Sub 4 callus mild, sub 1 1cm, gr toe IPJ 1cm Nails: Digit 1 thick,yellow,crumbling 5mm Digit 2 thick,yellow,crumbling 4mm Digit 3t hick,yellow,crumbling 4mm Digit 4 thick,yellow,crumbling 3mm Digit 5 thick,yellow,crumbling 3mm Neurovascular Dorsalis pedis: 3+ Posterior tibial: 3+ Saphenous nerve sensation: normal Tibial nerve sensation: normal Superficial peroneal nerve sensation: normal Deep peroneal nerve sensation: normal Sural nerve sensation: normal Achilles reflex: 2+ Babinski reflex: 2+ Muscle Strength Ankle dorsiflexion: 5 Ankle plantar flexion: 5 Ankle inversion: 5 Ankle eversion: 5 Great toe extension: 5 Great toe flexion: 5 Range of Motion Normal right ankle ROM- POP sub 1 lesion Nails: Digit 1 thick,yellow,crumbling 5mm Digit 2 thick,yellow,crumbling 4mm Digit 3t hick,yellow,crumbling 4mm Digit 4 thick,yellow,crumbling 3mm Digit 5 thick,yellow,crumbling 3mm Left Foot/Ankle Inspection and Palpation Ecchymosis: none Tenderness: none Swelling: none Arch: normal Hammertoes: second toe, third toe, fourth toe and fifth toe Claw toes: absent Hallux valgus: no, bunionette, red Hallux limitus: no Skin Exam: skin intact; 6mm lesion sub 5, minimal sub 5 base Nails: Digit 1 thick,yellow,crumbling 5mm Digit 2 thick,yellow,crumbling 4mm Digit 3t hick,yellow,crumbling 4mm Digit 4 thick,yellow,crumbling 3mm Digit 5 thick,yellow,crumbling 3mm Neurovascular Dorsalis pedis: 3+ Posterior tibial: 3+ Saphenous nerve sensation: normal Tibial nerve sensation: normal Superficial peroneal nerve sensation: normal Deep peroneal nerve sensation: normal Sural nerve sensation: normal Achilles reflex: 2+ Babinski reflex: 2+ Muscle Strength Ankle dorsiflexion: 5 Ankle plantar flexion: 5 Ankle inversion: 5 Ankle eversion: 5 Great toe extension: 5 Great toe flexion: 5 Range of Motion Normal left ankle ROM- 0 deg, POP sub 5th met lesion Assessment/Plan pain callus - severe toe deformity. Bunionette growing and ankle ROM reducing Bunion/Bunionette: Deformity addressed for potential causes including hereditary and trauma and poor shoe choices. ice, poadding and better shoe fit discussed for conservative management. Surgery may be needed for correction to avaoid activity changes and prevent wounds home care and shoe and foot hygien reviewed for improvment and topcial care planned and surgery if slow progress Hammertoe: deformed toes reviewed with risk of ulceration and infection. shoe changes reviewed including rx shoes. extra depth needed and will use pads until shoe fit improved.. surgical correction also reviewed Refusing surgery and prefers conservative care Callus: all hyperkeratotic tissue debrided to all areas described above sharply with a #15 blade Pads applied and disp- inlays modified, orth needed and recommended Stretching: calf , hamstring and arch stretching and home rehab program reviewed in detail with pt demonstrating good understanding and ability to perform exercises. written and oral instructions given documented in this encounter [facility] Healthcare Evaluation + Plan note Note Date & Type Note Facility Evaluation + Plan note No data available for this section [facility] Evaluation note Note Date & Type Note Facility Evaluation note No assessment information availa [facility] Work Phone: Evaluation note Note Date & Type Note Facility Evaluation note Diagnosis Left foot pain- Primary Pain in soft tissues of limb Corns and callosities Tailor's bunion of left foot Right foot pain Pain in soft tissues of limb Hammer toes of both feet Equinus contracture of ankle documented in this encounter [facility] Discharge instructions Note Date & Type Note Facility Hospital Discharge instructions No data available for this section [facility] Progress note Note Date & Type Note Facility Progress note No data available for this section [facility] Summary Purpose Family History No Family History Records FoundNo Family History Records FoundNo Family History Records Found No data available for this section No Family History Records FoundNo Family History Records Found Advance Directives No Advanced Directives Records FoundNo Advanced Directives Records FoundNo Advanced Directives Records FoundNo Advanced Directives Records FoundNo Advanced Directives Records Found Chief Complaint and Reason for Visit Chief Complaint TSH Additional Source Comments INFORMATION SOURCE (unrecogn ized section and content) DATE CREATED AUTHOR 01/18/2021 [facility] DATE CREATED AUTHOR AUTHOR'S ORGANIZ ATION 06/20/2022 [facility] DATE CREATED AUTHOR AUTHOR'S ORGANIZ ATION 06/24/2022 [facility] [place] [facility] DATE CREATED AUTHOR AUTHOR'S ORGANIZ ATION 07/29/2023 [facility] DATE CREATED AUTHOR AUTHOR'S ORGANIZ ATION 09/23/2024 [facility] [employer] Care Teams (unrecognized sec tion and content) Team Status: Inactive Member Role Status Dates Vic Rodríguez MD Primary Care Provider Active Outreach Community Attending Provider Active Team Status: Active Member Role Status Dates Vic Rodríguez MD Primary Care Provider Active 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 Relationship Specialty Start Date End Date Massiel Jasmine MD [address] [place] [address] PCP - General Family Medicine 05/25/23 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 Relationship Specialty Start Date End Date Massiel Jasmine MD [address] [place] [address] PCP - General Family Medicine 05/25/23 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 Relationship Specialty Start Date End Date Massiel Jasmine MD [address] [place] [address] PCP - General Family Medicine 05/25/23 Goals (unrecognized section and content) Goals may be documented in a n alternate section No data available for this section Reason for Visit (unrecogniz ed section and content) Reason Comments Follow-up B/l callous es FOR RECORDS PERTAINING TO PATIENTS WHO ARE OR HAVE BEEN ENROLLED IN A CHEMICAL DEPENDENCY/SUBSTANCEABUSE PROGRAM, SOME INFORMATION MAY BE OMITTED. This clinical summary was aggregated from multiple sources. Caution should be exercised in using it in the provision of clinical care. This summary normalizes information from multiple sources, and as a consequence, information in this document may materially change the coding, format and clinical context of patient data. In addition, data may be omitted in some cases. CLINICAL DECISIONS SHOULD BE BASED ON THE PRIMARY CLINICAL RECORDS. [facility]. provides no warranty or guarantee of the accuracy or completeness of information in this document.
[2024-10-25 15:07] LABS: Age Gdln ACOG Testing Note (.); HPV Aptima Negative (Negative); IGP, Aptima HPV, rfx 16/18,45 Note (.)
== END 2024-10-19 19:47 | disposition home or self-care (01) ==
LOC: LAB 19:46
PROVIDERS: Visit Provider Physician Assistant
DX: Z01.419 Encounter for gynecological examination (general) (routine) without abnormal findings (principal)
CPT/HCPCS: 87624; 88175

== ENCOUNTER 2024-11-09 11:18 | Outpatient (OUT) | payer BC, SELFPAY ==
--- NOTE | 2024-11-09 11:22 | MM_ITS ---
Patient Name: JULIO ZHU MR#: [id number] : 1960 Exam Date: 11/09/2024 Ordering Doctor: Massiel Jasmine RADIOLOGY REPORT PROCEDURE: MM TOMOSYNTHESIS SCREENING BI COMPARISON: MM TOMOSYNTHESIS SCREENING BI, 10/27/2023. MG MAMM SCREEN 3D OPAL CAD, 10/02/2022. MG MAMM SCREEN OPAL W CAD, 08/12/2021. MG MAMM OPAL SCRN W CAD DIG, 12/18/2013. INDICATIONS: Screening Calculator Name NCI Breast Cancer Risk Assessment Tool 5 Year Breast Cancer Risk 1.20% Lifetime Breast Cancer Risk 4.70% Personal Breast Cancer No Personal Ovarian Cancer No Treatments None Family Cancers Mother with cervical cancer at age 70; Sister with lung cancer at age 64. LOCATION: [facility] [place] BREAST COMPOSITION: There are scattered areas of fibroglandular density. FINDINGS: DIAGNOSTIC CATEGORY 1--NEGATIVE. NO CHANGE FROM COMPARISON ASSESSMENT.. RIGHT BREAST: No significant suspicious finding. LEFT BREAST: No significant suspicious finding. RECOMMENDATIONS: ROUTINE MAMMOGRAM AND CLINICAL EVALUATION IN 12 MONTHS. PLEASE NOTE: A NORMAL MAMMOGRAM DOES NOT EXCLUDE THE POSSIBILITY OF BREAST CANCER. A CLINICALLY SUSPICIOUS PALPABLE LUMP SHOULD BE BIOPSIED. Dictated by: Ed Stokes DO on 11/09/2024 at 13:23 Approved by: Ed Stokes DO on 11/09/2024 at 13:25
== END 2024-11-09 11:19 | disposition home or self-care (01) ==
LOC: MAMMO 11:18
PROVIDERS: Visit Provider Family Medicine
DX: Z12.31 Encounter for screening mammogram for malignant neoplasm of breast (principal); Z80.8 Family history of malignant neoplasm of other organs or systems; Z80.1 Family history of malignant neoplasm of trachea, bronchus and lung
CPT/HCPCS: 77063; 77067